=== PATIENT | female | born 2005 | race Caucasian/White ===

== ENCOUNTER 2024-06-11 07:55 | Outpatient (CLI) | payer BC, OTHER, SELFPAY ==
--- NOTE | ~2024-06-11 | MR_ITS ---
EXAMINATION: MR ankle RT wo con DATE: 06/11/2024 08:41 INDICATION: Posterior tibial tendinitis TECHNIQUE: Magnetic resonance imaging (MRI) of the right ankle was performed without intravenous cont rast. Sequences included sagittal, coronal, and axial proton-density weighted fast spin echo without and with fat saturation. COMPARISON: None. FINDINGS: Medial ankle ligaments: Deep and superficial deltoid ligaments as well as the spring ligament are normal. Lateral ankle ligaments: The anterior and posterior inferior tibiofibular ligaments are normal. The anterior talofibular, calc aneofibular and posterior talofibular ligaments are normal. Tendons: Achilles tendon is normal. The peroneus longus and brevis tendons are normal. The tibialis anterior a nd extensor hallucis longus and extensor digitorum longus tendons are normal. There is small amount o f fluid surrounding the proximal tibialis posterior tendon consistent with mild tenosynovitis. There is mild tendinopathy and a short longitudinal split tear of the peroneus brevis and longus tendon renee tered immediately distal to the tip of the medial malleolus. The flexor digitorum longus and flexor h allucis longus tendons are normal. Plantar fascia: Plantar aponeurosis is normal. Bones/other: Bone alignment is normal. There is low signal intensity bone island at the neck of the talus. No frac ture or pathologic marrow replacing process. Joint spaces and cartilage are normal. Fluid: Small subtalar joint effusion with increased fluid in the recesses posterior to the joint space in a recess anterior to the posterior facet which underlies the peroneal tendons. Visualized amount fluid in the remaining joint spaces. IMPRESSION: 1. Mild tibialis posterior tenosynovitis with mild tendinopathy and short longitudinal split tear. 2. Nonspecific small subtalar joint effusion. Reviewed, dictated and finalized at location A. IMPRESSION: 1. Mild tibialis posterior tenosynovitis with mild tendinopathy and short longi tudinal split tear. 2. Nonspecific small subtalar joint effusion.
== END 2024-06-11 07:56 | disposition home or self-care (01) ==
PROVIDERS: Visit Provider Podiatrist Foot & Ankle Surgery
DX: M65.871 Other synovitis and tenosynovitis, right ankle and foot (principal); S86.219A Strain of muscle(s) and tendon(s) of anterior muscle group at lower leg level, unspecified leg, initial encounter; X58.XXXA Exposure to other specified factors, initial encounter; M25.471 Effusion, right ankle; M76.822 Posterior tibial tendinitis, left leg
CPT/HCPCS: 73721